=== PATIENT | male | born 1945 | race Caucasian/White ===

== ENCOUNTER → 2016-03-15 | Outpatient (CLI) | payer MEDICARE, OTHER ==
[~2016-03-15] MED LIST: EXFORGE 5/161 TABLET PO; NORCO 5/3251 TABLET PO; PANTOPRAZOLE SO40 MG PO; TUMERIC PO; VITAMIN C500 M1 PO
== END | disposition home or self-care (01) ==
LOC: CDC 11:07
DX: Z01.810 Encounter for preprocedural cardiovascular examination (principal); I45.9 Conduction disorder, unspecified; C16.9 Malignant neoplasm of stomach, unspecified
CPT/HCPCS: 93000

== ENCOUNTER 2016-03-17 11:01 | Day surgery (SDC) | payer OTHER ==
[~2016-03-17] VITALS: Ht 172.7 cm; Wt 68.0 kg
[~2016-03-17 11:01] MED LIST changes: -NORCO 5/3251 TABLET PO
[2016-03-17 11:26] VITALS: BP 154/79
[2016-03-17] MEDS ORDERED: NORCO 5/3251 TABLET PO (14:18)
[2016-03-17 15:04] VITALS: BP 164/86
[2016-03-17 15:46] VITALS: BP 174/84
== END 2016-03-17 15:57 | disposition home or self-care (01) ==
LOC: SDC
DX: I87.8 Other specified disorders of veins (principal); C16.9 Malignant neoplasm of stomach, unspecified
CPT/HCPCS: 71010; 84132; C1751; C1894; J0690; J1644